=== PATIENT | female | born 1980 | race Caucasian/White ===

== ENCOUNTER 2018-05-29 20:01 | Emergency (ER) | payer OTHER ==
[2018-05-29 20:09] VITALS: BP 149/99; PULSE 99; TEMP 97.9; BMI 27.4
[2018-05-29] MEDS ORDERED: ONDANSETRON 4 MG/2 ML VIAL IVPUSH ONE (20:25)
[2018-05-29] MEDS ORDERED: SODIUM CHLORIDE 1,000 ML IV STA (20:25)
[2018-05-29] MEDS ORDERED: morphine CARPU-JECT 4 MG/1 ML DISP.SYRIN IVPUSH ONE (20:25)
--- NOTE | 2018-05-29 20:29 | PDOC ---
Attending Attestation - HPI HPI: 05/29/18 21:32 The patient is a 37 year old female with past medical history significant for hypothyroidism presents to the emergency department with abdominal pain. The patient reports the pain stated around midnight, associated with multiple episodes of NBNB emesis. The patient reports associated symptoms of nausea and chills. Denies fever, diarrhea, urinary symptoms or changes in bowel habits. Allergies: NKDA PCP: Dr. Wing Rooney - Physicial Exam PE: 05/29/18 21:33 GENERAL: The patient is in no acute distress. HEAD: Normal with no signs of trauma. EYES: PERRLA, EOMI, sclera anicteric, conjunctiva clear. ENT: Ears normal, nares patent, oropharynx clear without exudates. Moist mucous membranes. NECK: Normal range of motion, supple without lymphadenopathy, JVD, or masses. LUNGS: Breath sounds equal, clear to auscultation bilaterally. No wheezes, and no crackles. HEART:Regular rate and rhythm, normal S1 and S2 without murmur, rub or gallop. ABDOMEN:+RUQ tenderness, no involuntary guarding or rebound. Soft, no masses palpated. EXTREMITIES: Normal range of motion, no edema. No clubbing or cyanosis. No erythema, or tenderness. NEUROLOGICAL: Cranial nerves II through XII grossly intact. Normal speech. No focal neurological deficits. MUSCULOSKELETAL: Back nontender to palpation, no CVA tenderness SKIN: +petechiae to the face. Dry, normal turgor, no rashes or lesions noted. - Medical Decision Making 05/29/18 21:33 Documentation prepared by Tanisha Renner, acting as remote medical coder for Sharri Rocha MD. <Tanisha Renner - Last Filed: 05/29/18 21:32> - Resident Resident Name: Avery Javed - ED Attending Attestation I have performed the following: I have examined & evaluated the patient, The case was reviewed & discussed with the resident, I agree w/resident's findings & plan, Exceptions are as noted - Medical Decision Making 05/29/18 22:10 Laboratory Tests 05/29/18 05/29/18 05/29/18 20:40 20:40 20:40 WBC 15.3 H Hgb 13.6 Hct 39.8 Plt Count 275 Neutrophils % 83.9 H BUN 13 Creatinine 0.9 Total Bilirubin 0.2 AST 29 ALT 36 Serum , Qual Negative EKG- NSR rate of 82 bpm, axis nml, intervals nml, no st elevation or depression <Sharri Rocha - Last Filed: 05/29/18 22:11>
[2018-05-29] MEDS ORDERED: morphine SULFATE 4 MG/ML VIAL ONE (20:47)
[2018-05-29 20:49] LABS: BASO % 0.5 % (0-2.0); EOS % 0.7 % (0-4.5); HEMATOCRIT 39.8 % (32.4-45.2); HEMOGLOBIN 13.6 GM/dL (10.7-15.3); LYMPH % 12.1 % (8-40); MCH 32.1 pg (25.7-33.7); MCHC 34.2 g/dl (32.0-36.0); MEAN CELL VOLUME 93.9 fl (80-96); MEAN PLT VOLUME 9.2 fl (7.5-11.1); MONO % 2.8 % (3.8-10.2); NEUT % 83.9 % (42.8-82.8); PLATELET COUNT 275 K/MM3 (134-434); RBC 4.24 M/mm3 (3.60-5.2); RDW 13.4 % (11.6-15.6); WHITE BLOOD COUNT 15.3 K/mm3 (4.0-10.0)
[2018-05-29] MEDS ORDERED: FAMOTIDINE 20 MG/50 ML IVPB 20 MG/50 ML MG IVPB ONE ×2 (21:00→21:57)
--- NOTE | 2018-05-29 21:04 | PDOC ---
History of Present Illness - General Chief Complaint: Nausea/Vomiting Stated Complaint: VOMITING ABDOMINAL PAIN Time Seen by Provider: 05/29/18 20:16 History Source: Patient Exam Limitations: Language Barrier (phone int used) - History of Present Illness Initial Comments: 05/29/18 20:55 Patient is a 37F with history of hypothyroidism here today complaining of abdominal pain and vomiting that started at about noon today. Denies fevers, endorses chills. Denies blood in vomit. Pain is worse in epigastrium. Denies diarrhea, constipation. Denies prior surgical history. Denies vaginal pain, vaginal discharge, vaginal bleeding. LMP 05/07. No sick contacts. Endorses drinking two beers last night. Past History - Past Medical History Allergies/Adverse Reactions: Allergies Allergy/AdvReac Type Severity Reaction Status Date / Time No Known Allergies Allergy Verified 05/29/18 20:53 Home Medications: Ambulatory Orders NK [No Known Home Medication] 05/29/18 COPD: No Other medical history: HLD, Hypothyroidism - Suicide/Smoking/Psychosocial Hx Smoking History: Unknown if ever smoked Hx Alcohol Use: Yes (Social) Drug/Substance Use Hx: No Review of Systems - Review of Systems Comments:: 05/29/18 21:04 GENERAL/CONSTITUTIONAL: No fever or chills. No weakness. HEAD, EYES, EARS, NOSE AND THROAT: No change in vision. No sore throat. CARDIOVASCULAR: No chest pain or shortness of breath RESPIRATORY: No cough, wheezing, or hemoptysis. GASTROINTESTINAL: +nausea, +vomiting, no diarrhea or constipation. GENITOURINARY: No dysuria, frequency, or change in urination. MUSCULOSKELETAL: No joint or muscle swelling or pain. No neck or back pain. SKIN: No rash NEUROLOGIC: No headache, vertigo, loss of consciousness, or change in strength/ sensation. HEMATOLOGIC/LYMPHATIC: No anemia, easy bleeding, or history of blood clots. ALLERGIC/IMMUNOLOGIC: No hives or skin allergy. *Physical Exam - Vital Signs Last Vital Signs Temp Pulse Resp BP Pulse Ox 97.9 F 99 H 20 149/99 100 05/29/18 20:06 05/29/18 20:06 05/29/18 20:06 05/29/18 20:06 05/29/18 20:06 - Physical Exam Comments: 05/29/18 21:07 GENERAL: Awake, alert, and fully oriented, in no acute distress HEAD: No signs of trauma, normocephalic, atraumatic EYES: PERRLA, EOMI, sclera anicteric, conjunctiva clear ENT: Auricles normal inspection, hearing grossly normal, nares patent, oropharynx clear without exudates. Moist mucosa NECK: Normal ROM, supple, no lymphadenopathy, JVD, or masses LUNGS: No distress, speaks full sentences, clear to auscultation bilaterally HEART: Regular rate and rhythm, normal S1 and S2, no murmurs, rubs or gallops, peripheral pulses normal and equal bilaterally. ABDOMEN: Soft, +RUQ tenderness, normoactive bowel sounds. No guarding, no rebound. No masses EXTREMITIES: Normal inspection, Normal range of motion, no edema. No clubbing or cyanosis. NEUROLOGICAL: Cranial nerves II through XII grossly intact. Normal speech, normal gait, no focal sensorimotor deficits SKIN: Warm, Dry, normal turgor, no rashes or lesions noted. Moderate Sedation - Procedure Monitoring Vital Signs: Procedure Monitoring Vital Signs Temperature 97.9 F 05/29/18 20:06 Pulse Rate 99 H 05/29/18 20:06 Respiratory Rate 20 05/29/18 20:06 Blood Pressure 149/99 05/29/18 20:06 O2 Sat by Pulse Oximetry (%) 100 05/29/18 20:06 ED Treatment Course - LABORATORY CBC & Chemistry Diagram: 05/29/18 20:40 05/29/18 20:40 - ADDITIONAL ORDERS Additional order review: 05/29/18 20:40 RBC 4.24 MCV 93.9 MCHC 34.2 RDW 13.4 MPV 9.2 Neutrophils % 83.9 H Lymphocytes % 12.1 Monocytes % 2.8 L Eosinophils % 0.7 Basophils % 0.5 - RADIOLOGY Radiology Studies Ordered: Category Date Time Status ABDOMEN US -LIMITED [US] Stat Ultrasound 05/29/18 20:27 Ordered Medical Decision Making - Medical Decision Making 05/29/18 21:07 Patient is 37F with history of hypothyroidism here today with vomiting. Vitals normal and stable. RUQ tenderness on exam. DDx includes, but is not limited to: gastritis, pancreatitis, cholecystitis. Will evaluate with abdominal labs and RUQ US. 05/30/18 00:50 CBC shows leukocytosis. CMP, lipase normal. UA clear. Preg normal. US shows fatty liver, gallbladder normal. Patient continued to have pain, CT a/p ordered. 05/30/18 01:[address] Mckeon pending CT a/p. If normal, PO challenged and dc. *DC/Admit/Observation/Transfer Diagnosis at time of Disposition: Abdominal pain - Discharge Dispostion Condition at time of disposition: Fair - Referrals Referrals: ON STAFF,NOT [Non Staff, Medical] - - Patient Instructions - Post Discharge Activity
[2018-05-29 21:28] LABS: ALBUMIN 3.8 g/dl (3.4-5.0); ALK PHOS 86 U/L (45-117); ANION GAP 9 MMOL/L (8-16); BILIRUBIN,TOTAL 0.2 mg/dL (0.2-1); BLOOD UREA NITROGEN 13 mg/dL (7-18); CALCIUM 8.7 mg/dL (8.5-10.1); CHLORIDE 107 mmol/L (98-107); CO2 24 mmol/L (21-32); CREATININE 0.9 mg/dL (0.55-1.3); GLUCOSE,RANDOM 107 mg/dL (74-106); LIPASE 82 U/L (73-393); POTASSIUM 4.7 mmol/L (3.5-5.1); SGOT/AST 29 U/L (15-37); SGPT/ALT 36 U/L (13-61); SODIUM 140 mmol/L (136-145); TOT PROT 7.8 g/dl (6.4-8.2)
[2018-05-29 22:03] LABS: URINE APPEARANCE CLEAR; URINE BILIRUBIN NEGATIVE (<2.0 mg/dL); URINE COLOR YELLOW; URINE GLUCOSE (UA) NEGATIVE (NEGATIVE); URINE KETONE TRACE (NEGATIVE); URINE LEUK ESTERASE 1+ (NEGATIVE); URINE NITRITE NEGATIVE (NEGATIVE); URINE PROTEIN 1+ (NEGATIVE); URINE UROBILINOGEN NEGATIVE mg/dL (0.2-1.0)
[2018-05-29 22:13] LABS: EPI CELLS RARE /HPF (FEW); URINE BACTERIA RARE /hpf (NONE SEEN); URINE MUCUS RARE
--- NOTE | 2018-05-30 02:04 | PDOC ---
*Physical Exam - Vital Signs Last Vital Signs Temp Pulse Resp BP Pulse Ox 97.9 F 99 H 20 149/99 100 05/29/18 20:06 05/29/18 20:06 05/29/18 20:06 05/29/18 20:06 05/29/18 20:06 <Chitra Cifuentes - Last Filed: 05/30/18 02:28> - Vital Signs Last Vital Signs Temp Pulse Resp BP Pulse Ox 97.9 F 99 H 20 149/99 100 05/29/18 20:06 05/29/18 20:06 05/29/18 20:06 05/29/18 20:06 05/29/18 20:06 <Farheen Mckeon - Last Filed: 05/30/18 02:40> ED Treatment Course - LABORATORY CBC & Chemistry Diagram: 05/29/18 20:40 05/29/18 20:40 - ADDITIONAL ORDERS Additional order review: Laboratory Results 05/29/18 05/29/18 05/29/18 21:55 20:40 20:40 Sodium 140 Potassium 4.7 Chloride 107 Carbon Dioxide 24 Anion Gap 9 BUN 13 Creatinine 0.9 Creat Clearance w eGFR 70.45 Random Glucose 107 H Calcium 8.7 Total Bilirubin 0.2 AST 29 ALT 36 Alkaline Phosphatase 86 Total Protein 7.8 Albumin 3.8 Lipase 82 Serum , Qual Negative Urine Color Yellow Urine Appearance Clear Urine pH 7.0 Ur Specific Glen 1.027 Urine Protein 1+ H Urine Glucose (UA) Negative Urine Ketones Trace H Urine Blood Negative Urine Nitrite Negative Urine Bilirubin Negative Urine Urobilinogen Negative Ur Leukocyte Esterase 1+ H Urine WBC (Auto) 4 Urine RBC (Auto) 7 Ur Epithelial Cells Rare Urine Bacteria Rare Urine Mucus Rare 05/29/18 20:40 RBC 4.24 MCV 93.9 MCHC 34.2 RDW 13.4 MPV 9.2 Neutrophils % 83.9 H Lymphocytes % 12.1 Monocytes % 2.8 L Eosinophils % 0.7 Basophils % 0.5 - Medications Given in the ED: ED Medications Discontinued Medications Generic Name Dose Route Start Last Admin Trade Name Freq PRN Reason Stop Dose Admin Famotidine/Sodium Chloride 20 mg in 50 mls @ 100 mls/hr 05/29/18 21:00 21:58 Pepcid 20 Mg Premixed Ivpb - IVPB 05/29/18 21:29 100 mls/hr ONCE ONE Administration Sodium Chloride 1,000 mls @ 1,000 mls/hr 05/29/18 20:25 05/29/18 20:51 Normal Saline - IV 05/29/18 21:24 1,000 mls/hr ASDIR STA Administration Morphine Sulfate 4 mg 05/29/18 20:25 05/29/18 20:51 Morphine Injection - IVPUSH 05/29/18 20:26 4 mg ONCE ONE Administration Ondansetron HCl 4 mg 05/29/18 20:25 05/29/18 20:51 Zofran Injection IVPUSH 05/29/18 20:26 4 mg ONCE ONE Administration <CifuentesChitra - Last Filed: 05/30/18 02:28> - LABORATORY CBC & Chemistry Diagram: 05/29/18 20:40 05/29/18 20:40 - ADDITIONAL ORDERS Additional order review: Laboratory Results 05/29/18 05/29/18 05/29/18 21:55 20:40 20:40 Sodium 140 Potassium 4.7 Chloride 107 Carbon Dioxide 24 Anion Gap 9 BUN 13 Creatinine 0.9 Creat Clearance w eGFR 70.45 Random Glucose 107 H Calcium 8.7 Total Bilirubin 0.2 AST 29 ALT 36 Alkaline Phosphatase 86 Total Protein 7.8 Albumin 3.8 Lipase 82 Serum , Qual Negative Urine Color Yellow Urine Appearance Clear Urine pH 7.0 Ur Specific Glen 1.027 Urine Protein 1+ H Urine Glucose (UA) Negative Urine Ketones Trace H Urine Blood Negative Urine Nitrite Negative Urine Bilirubin Negative Urine Urobilinogen Negative Ur Leukocyte Esterase 1+ H Urine WBC (Auto) 4 Urine RBC (Auto) 7 Ur Epithelial Cells Rare Urine Bacteria Rare Urine Mucus Rare 05/29/18 20:40 RBC 4.24 MCV 93.9 MCHC 34.2 RDW 13.4 MPV 9.2 Neutrophils % 83.9 H Lymphocytes % 12.1 Monocytes % 2.8 L Eosinophils % 0.7 Basophils % 0.5 - Medications Given in the ED: ED Medications Discontinued Medications Generic Name Dose Route Start Last Admin Trade Name Freq PRN Reason Stop Dose Admin Famotidine/Sodium Chloride 20 mg in 50 mls @ 100 mls/hr 05/29/18 21:00 21:58 Pepcid 20 Mg Premixed Ivpb - IVPB 05/29/18 21:29 100 mls/hr ONCE ONE Administration Sodium Chloride 1,000 mls @ 1,000 mls/hr 05/29/18 20:25 05/29/18 20:51 Normal Saline - IV 05/29/18 21:24 1,000 mls/hr ASDIR STA Administration Morphine Sulfate 4 mg 05/29/18 20:25 05/29/18 20:51 Morphine Injection - IVPUSH 05/29/18 20:26 4 mg ONCE ONE Administration Ondansetron HCl 4 mg 05/29/18 20:25 05/29/18 20:51 Zofran Injection IVPUSH 05/29/18 20:26 4 mg ONCE ONE Administration <Farheen Mckeon - Last Filed: 05/30/18 02:40> Medical Decision Making - Medical Decision Making 05/30/18 02:28 Patient Name: FREDDIE BARRY THIS IS A PRELIMINARY REPORT FROM [facility] DATE OF SERVICE: 2018-05-30 00:24:57 IMAGES: [id number] EXAM: CT ABDOMEN \T\ PELVIS CT WITH CONTR HISTORY: Right lower quad [address] [place] [address] Phone: [email or web address] ([phone]) Fax: Email: [email or web address] Patient Information: : 1980 Order Type: Preliminary Name: WENDY FRAZIER Sex: F Study Description: CT ABDOMEN AND PELVIS Modality: CT Location: [facility] Referring Physician: MANDIE PASCUAL Gallbladder: Normal Stomach: Normal Small bowel: Normal Large bowel: Normal Appendix: Normal Adrenals:Normal Kidneys: Normal Vascular: Normal Lymphatic: Normal Peritoneal: No free peritoneal air or fluid Pelvis: Uterus: normal Rectum: Normal Bladder: Normal The inferior thorax: Normal General: Skeletal: Normal Abdominal wall: Normal IMPRESSION: No acute findings <Chitra Cifuentes - Last Filed: 05/30/18 02:28> - Medical Decision Making 05/30/18 02:02 Sign out received from Dr Javed. Freddie Barry is a 37yo woman with an PMH of hypothyroidism who presented to the ED with vomiting and RUQ tenderness. ED course notable for: - Leukocytosis on CBC, labs otherwise unremarkable - Abd US with fatty liver. No sign of gallstones or cholecystitis - CT abd/pelvis ordered. Now completed, reviewed in ED, no obvious abnormalities noted. Radiology read pending. 05/30/18 02:32 - CT without acute abnormalities - Ms Barry re-evaluated. Feeling improved. Able to drink water without vomiting. Will d/c home with PMD follow up and return precautions. Discussed with Dr Cifuentes. Farheen Mckeon PGY1 <Farheen Mckeon - Last Filed: 05/30/18 02:40> *DC/Admit/Observation/Transfer <Chitra Cifuentes - Last Filed: 05/30/18 02:28> <Farheen Mckeon - Last Filed: 05/30/18 02:40> Diagnosis at time of Disposition: Abdominal pain, Vomiting - Discharge Dispostion Condition at time of disposition: Fair - Referrals Referrals: ON STAFF,NOT [Non Staff, Medical] - - Patient Instructions Printed Discharge Instructions: DI for Vomiting -- Adult Additional Instructions: Discharge Instructions: You were seen in the emergency department for vomiting and abdominal pain. You had blood tests, an ultrasound, and a CT scan. The results were not concerning. Your vomiting and pain are most likely caused by a viral infection or stomach irriaation. Home Care: - Drink plenty of fluids. Avoid alcohol, caffeine, and dairy products - Do not worry about eating until you feel better as long as you are staying well-hydrated. When you start to eat, start with plain foods and small meals. Avoid spicy and greasy foods. Continue to avoid dairy, alcohol, and caffeine. - Continue to take all medications as previously prescribed. - You may take acetaminophen 650-1000mg every 6-8 hours as needed for pain. Avoid ibuprofen as this can irritate your stomach. Follow Up: - See your regular doctor within the next week or earlier if your symptoms continue. - Seek immediate medical care if your symptoms worsen, you are unable to eat/ drink anything, you feel dehydrated, you become lightheaded, or you see blood in your vomit. Instrucciones de descarga: Usted fue atendido en el servicio de urgencias por vmitos y dolor abdominal. Se le realizaron anlisis de kirsten, rosario ecografa y rosario tomografa computarizada. Los resultados no fueron preocupantes. David vmitos y dolor son probablemente causados ??por rosario infeccin viral o irritacin estomacal. Cuidados en el hogar: - Beber mucho lquido. Celeste el alcohol, la cafena y los productos lcteos. - No se preocupe por comer hasta que se sienta mejor, siempre y cuando se mantenga brenda hidratado. Cuando comience a comer, comience con comidas simples y pequeas. Evite los alimentos picantes y grasientos. Continuar evitando los productos lcteos, el alcohol y la cafena. - Continuar tomando todos los medicamentos milagro se prescribi anteriormente. - Puede miguel angel acetaminofn 650-1000mg cada 6-8 horas segn sea necesario para el dolor. Evite el ibuprofeno ya que esto puede irritar shook estmago. Seguir: - Consulte a shook mdico habitual dentro de la prxima semana o antes si david sntomas continan. - Busque atencin mdica inmediata si david sntomas empeoran, no puede comer ni beber nada, se siente deshidratado, se siente mareado o ve kirsten en shook vmito. Print Language: UPPER SORBIAN - Post Discharge Activity
--- NOTE | 2018-05-30 11:07 | EKG ---
Test Reason : Blood Pressure : / mmHG Vent. Rate : 082 BPM Atrial Rate : 082 BPM P-R Int : 144 ms QRS Dur : 066 ms QT Int : 390 ms P-R-T Axes : 066 015 003 degrees QTc Int : 455 ms NORMAL SINUS RHYTHM NORMAL ECG NO PREVIOUS ECGS AVAILABLE Confirmed by MD INNA, SCOTTY ([id number]) on 05/30/2018 11:07:40 AM Referred By: Confirmed By:SCOTTY KEITH MD
== END 2018-05-30 03:02 | disposition home or self-care (01) ==
LOC: SUPCPDRO 20:01 → JER 20:01
PROC: 3E033GC Introduction of Other Therapeutic Substance into Peripheral Vein, Percutaneous Approach (ICD-10-PCS; principal; 2018-05-29)
PROC: 3E033GC Introduction of Other Therapeutic Substance into Peripheral Vein, Percutaneous Approach (ICD-10-PCS; 2018-05-29)
PROC: 3E033NZ Introduction of Analgesics, Hypnotics, Sedatives into Peripheral Vein, Percutaneous Approach (ICD-10-PCS; 2018-05-29)
DX: R10.9 Unspecified abdominal pain (principal); R11.2 Nausea with vomiting, unspecified
CPT/HCPCS: 36415; 74177-TC; 76705-TC; 80053; 81003; 81015; 83690; 84703; 85025; 93005; 93010; 96365; 96375; 99283-25; J7030

== ENCOUNTER 2018-08-23 12:39 | Emergency (ER) | payer OTHER | END 2018-08-23 14:15 | disposition home or self-care (01) | LOC: JERFT 12:39 ==

== ENCOUNTER 2021-07-26 23:00 | Emergency (ER) | payer OTHER ==
[2021-07-26 23:04] VITALS: BP 137/90; PULSE 93; TEMP 98.1; BMI 29.6
[2021-07-27] MEDS ORDERED: ACETAMINOPHEN 1000 MG/100 ML BAG IVPB ONE (00:28)
[2021-07-27] MEDS ORDERED: SODIUM CHLORIDE 0.9% 500 ML INFUS.BAG IV ONE (00:28)
[2021-07-27] MEDS ORDERED: METOCLOPRAMIDE HCL INJECTION 10 MG/2 ML VIAL IVPUSH ONE (00:28)
[2021-07-27] MEDS ORDERED: ACETAMINOPHEN INJECTION 100 ML IVPB ONE (01:01)
[2021-07-27] MEDS ORDERED: METOCLOPRAMIDE HCL INJECTION 10 MG/2 ML VIAL ONE (01:01)
[2021-07-27 01:10] LABS: BASO % 0.6 % (0-2.0); EOS % 1.7 % (0-4.5); HEMATOCRIT 36.8 % (32.4-45.2); HEMOGLOBIN 12.3 GM/dL (10.7-15.3); LYMPH % 22.8 % (8-40); MCH 30.8 pg (25.7-33.7); MCHC 33.5 g/dl (32.0-36.0); MEAN PLT VOLUME 8.9 fl (7.5-11.1); MONO % 4.9 % (3.8-10.2); PH,URINE 5.5 (5.0-8.0); PLATELET COUNT 259 10^3/uL (134-434); RDW 12.7 % (11.6-15.6); URINE APPEARANCE CLEAR; URINE BILIRUBIN NEGATIVE (NEGATIVE); URINE COLOR YELLOW; URINE GLUCOSE (UA) NEGATIVE (NEGATIVE); URINE KETONE NEGATIVE (NEGATIVE); URINE LEUK ESTERASE NEGATIVE (NEGATIVE); URINE NITRITE NEGATIVE (NEGATIVE); URINE PROTEIN NEGATIVE (NEGATIVE); URINE UROBILINOGEN 0.2 mg/dL (0.2-1.0); WHITE BLOOD COUNT 14.1 K/mm3 (4.0-10.0)
[2021-07-27 01:30] LABS: ALBUMIN 3.6 g/dl (3.4-5.0); BLOOD UREA NITROGEN 7.3 mg/dL (7-18); CALCIUM 8.9 mg/dL (8.5-10.1)
[2021-07-27 01:34] LABS: CREATININE 0.6 mg/dL (0.55-1.3)
[2021-07-27 01:35] LABS: BILIRUBIN,TOTAL 0.4 mg/dL (0.2-1); TOT PROT 7.1 g/dl (6.4-8.2)
== END 2021-07-27 03:19 | disposition home or self-care (01) ==
LOC: JER 23:00
PROC: 3E033GC Introduction of Other Therapeutic Substance into Peripheral Vein, Percutaneous Approach (ICD-10-PCS; principal; 2021-07-26)
DX: O26.891 Other specified pregnancy related conditions, first trimester (principal); R10.84 Generalized abdominal pain; R51.9 Headache, unspecified; Z3A.10 10 weeks gestation of pregnancy
CPT/HCPCS: 36415; 76817-TC; 80053; 81003; 84702; 85025; 86850; 86900; 86901; 87086; 99284-25

== ENCOUNTER 2021-08-11 10:47 | Emergency (ER) | payer OTHER ==
[2021-08-11 10:54] VITALS: BMI 29.6
[2021-08-11] MEDS ORDERED: SODIUM CHLORIDE 1,000 ML IV STA (12:05)
[2021-08-11] MEDS ORDERED: ACETAMINOPHEN 1000 MG/100 ML BAG IVPB ONE (12:05)
[2021-08-11 13:05] LABS: BASO % 0.4 % (0-2.0); EOS % 0.9 % (0-4.5); HCG,QUALITATIVE URINE Positive; HEMATOCRIT 36.7 % (32.4-45.2); HEMOGLOBIN 12.6 GM/dL (10.7-15.3); LYMPH % 22.3 % (8-40); MCH 31.9 pg (25.7-33.7); MCHC 34.3 g/dl (32.0-36.0); MEAN PLT VOLUME 9.4 fl (7.5-11.1); MONO % 3.8 % (3.8-10.2); NEUT % 72.6 % (42.8-82.8); PLATELET COUNT 255 10^3/uL (134-434); RBC 3.94 M/mm3 (3.60-5.2); RDW 13.4 % (11.6-15.6); WHITE BLOOD COUNT 10.8 K/mm3 (4.0-10.0)
[2021-08-11 13:09] LABS: EPI CELLS >36 /uL (0-25.1); HYALINE CASTS 3 /uL (0-3.1); PH,URINE 5.5 (5.0-8.0); URINE APPEARANCE CLOUDY; URINE BACTERIA 146 /uL (0-1359); URINE BILIRUBIN NEGATIVE (NEGATIVE); URINE COLOR YELLOW; URINE GLUCOSE (UA) NEGATIVE (NEGATIVE); URINE KETONE TRACE (NEGATIVE); URINE LEUK ESTERASE NEGATIVE (NEGATIVE); URINE NITRITE NEGATIVE (NEGATIVE); URINE PROTEIN NEGATIVE (NEGATIVE); URINE RBC 5 /uL (0-23.9); URINE UROBILINOGEN 0.2 mg/dL (0.2-1.0); URINE WBC 6 /uL (0-25.8)
[2021-08-11 13:16] LABS: CHLORIDE 100 mmol/L (98-107); SODIUM 131 mmol/L (136-145)
[2021-08-11 13:18] LABS: CALCIUM 8.7 mg/dL (8.5-10.1)
[2021-08-11 13:19] LABS: ALBUMIN 3.3 g/dl (3.4-5.0); BLOOD UREA NITROGEN 7.5 mg/dL (7-18); CO2 26 mmol/L (21-32); GLUCOSE,RANDOM 149 mg/dL (74-106); LIPASE 61 U/L (73-393)
[2021-08-11 13:21] LABS: CREATININE 0.7 mg/dL (0.55-1.3)
[2021-08-11 13:22] LABS: SGOT/AST 84 U/L (15-37)
[2021-08-11 13:23] LABS: BILIRUBIN,TOTAL 0.4 mg/dL (0.2-1); TOT PROT 7.6 g/dl (6.4-8.2)
[2021-08-11 13:24] LABS: ALK PHOS 87 U/L (45-117)
[2021-08-11 13:47] LABS: ANION GAP 5 MMOL/L (8-16); SGPT/ALT 30 U/L (13-61)
[2021-08-11 14:03] VITALS: BP 104/70; PULSE 89; TEMP 98
[2021-08-11 14:35] LABS: ALBUMIN 3.1 g/dl (3.4-5.0); BLOOD UREA NITROGEN 7.2 mg/dL (7-18); CALCIUM 8.7 mg/dL (8.5-10.1)
[2021-08-11 14:38] LABS: CREATININE 0.7 mg/dL (0.55-1.3)
[2021-08-11 14:40] LABS: BILIRUBIN,TOTAL 0.3 mg/dL (0.2-1); TOT PROT 6.4 g/dl (6.4-8.2)
== END 2021-08-11 14:56 | disposition home or self-care (01) ==
LOC: JER 10:47
PROC: 3E0333Z Introduction of Anti-inflammatory into Peripheral Vein, Percutaneous Approach (ICD-10-PCS; principal; 2021-08-11)
DX: O26.851 Spotting complicating pregnancy, first trimester (principal); Z3A.12 12 weeks gestation of pregnancy
CPT/HCPCS: 36415; 76801-TC; 80053; 81003; 83690; 84702; 84703; 85025; 87086; 96374; 99284-25

== ENCOUNTER 2022-02-10 19:30 | Inpatient (IN) | payer OTHER ==
[2022-02-10 21:53] LABS: BASO % 0.4 % (0-2.0); EOS % 0.2 % (0-4.5); HEMATOCRIT 38.5 % (32.4-45.2); HEMOGLOBIN 12.5 GM/dL (10.7-15.3); LYMPH % 17.8 % (8-40); MCH 30.1 pg (25.7-33.7); MCHC 32.5 g/dl (32.0-36.0); MEAN CELL VOLUME 92.4 fl (80-96); MEAN PLT VOLUME 12.3 fl (7.5-11.1); MONO % 3.8 % (3.8-10.2); NEUT % 77.8 % (42.8-82.8); PLATELET COUNT 150 10^3/uL (134-434); RBC 4.17 M/mm3 (3.60-5.2)
[2022-02-10 21:59] LABS: INR 0.94 (0.83-1.09); PROTHROMBIN TIME (PATIENT) 10.8 SEC (9.7-13.0)
[2022-02-10] MEDS ORDERED: ACETAMINOPHEN 325 MG TABLET (FP) PO PRN (22:05)
[2022-02-10] MEDS ORDERED: BISACODYL 10 MG SUPP.RECT RC PRN (22:05)
[2022-02-10] MEDS ORDERED: BENZOCAINE 20% 57 GM BOTTLE TP PRN (22:05)
[2022-02-10] MEDS ORDERED: BENZOCAINE 28 GM HEMORRHOIDAL OINTMENT TP PRN (22:05)
[2022-02-10] MEDS ORDERED: WITCH HAZEL 50% (TUCKS) 40 PAD/JAR PAD TP PRN (22:05)
[2022-02-10 22:14] LABS: CALCIUM 8.4 mg/dL (8.5-10.1)
[2022-02-10 22:15] LABS: BLOOD UREA NITROGEN 12.3 mg/dL (7-18)
[2022-02-10] MEDS ORDERED: OXYTOCIN 20 UNITS in 0.9% NS 20 UNIT/1,000 ML INFUS.BAG IV SCH (22:15)
[2022-02-10 22:18] LABS: CREATININE 0.8 mg/dL (0.55-1.3)
[2022-02-10 22:36] VITALS: BMI 30.9
[2022-02-11] MEDS: IBUPROFEN 600 MG TABLET (FP) PO PRN ×3 (00:20→15:26)
[2022-02-11] MEDS: LEVOTHYROXINE NA 100 MCG TABLET (FP) PO SCH (06:44)
[2022-02-11 07:55] LABS: BASO % 0.6 % (0-2.0); EOS % 0.5 % (0-4.5); HEMATOCRIT 38.3 % (32.4-45.2); HEMOGLOBIN 12.7 GM/dL (10.7-15.3); LYMPH % 25.8 % (8-40); MCH 30.4 pg (25.7-33.7); MCHC 33.2 g/dl (32.0-36.0); MEAN CELL VOLUME 91.6 fl (80-96); MEAN PLT VOLUME 11.4 fl (7.5-11.1); MONO % 6.4 % (3.8-10.2); NEUT % 66.7 % (42.8-82.8); PLATELET COUNT 157 10^3/uL (134-434); RBC 4.18 M/mm3 (3.60-5.2); RDW 14.2 % (11.6-15.6); WHITE BLOOD COUNT 12.8 K/mm3 (4.0-10.0)
[2022-02-11] MEDS: FERROUS SO4 325 MG TABLET (FP) PO SCH ×3 (08:55→18:15)
[2022-02-11] MEDS: PRENATAL VITAMINS W/ FOLIC ACID TABLET (FP) PO SCH (10:34)
[2022-02-12] MEDS: LEVOTHYROXINE NA 100 MCG TABLET (FP) PO SCH (06:13)
[2022-02-12] MEDS: IBUPROFEN 600 MG TABLET (FP) PO PRN (06:14)
[2022-02-12] MEDS: FERROUS SO4 325 MG TABLET (FP) PO SCH ×2 (07:47→12:11)
[2022-02-12 09:03] VITALS: RESP 20; TEMP 98.9
[2022-02-12] MEDS: PRENATAL VITAMINS W/ FOLIC ACID TABLET (FP) PO SCH (09:22)
[2022-02-12 11:18] VITALS: BP 132/89; PULSE 67
== END 2022-02-12 13:30 | disposition home or self-care (01) | DRG 560 ==
LOC: JLDR 19:30 → J3W 23:32
PROVIDERS: ADMIT Obstetrics & Gynecology Maternal & Fetal Medicine; ATTEND Obstetrics & Gynecology Maternal & Fetal Medicine
PROC: 10E0XZZ Delivery of Products of Conception, External Approach (ICD-10-PCS; principal; 2022-02-10)
DX: O62.3 Precipitate labor (principal); O10.92 Unspecified pre-existing hypertension complicating childbirth; O24.424 Gestational diabetes mellitus in childbirth, insulin controlled; O77.0 Labor and delivery complicated by meconium in amniotic fluid; O70.0 First degree perineal laceration during delivery; Z3A.39 39 weeks gestation of pregnancy; Z37.0 Single live birth
CPT/HCPCS: 36415; 59409; 80048; 82962; 85025; 85610; 85730; 86780; 86850; 86900; 86901; 87340; C9803-CS; U0003; U0005

== ENCOUNTER 2022-12-12 19:37 | Emergency (ER) | payer OTHER ==
[2022-12-12 19:49] VITALS: BP 135/96; PULSE 82; RESP 20; TEMP 98.1; BMI 31.4
[2022-12-12] MEDS ORDERED: KETOROLAC TROMETHAMINE 30 MG/1 ML VIAL IM ONE (20:17)
[2022-12-12] MEDS ORDERED: LIDOCAINE 5% TOPICAL PATCH TP ONE (20:17)
[2022-12-12] MEDS ORDERED: ACETAMINOPHEN 500 MG TABLET (FP) PO ONE (20:17)
[2022-12-12] MEDS ORDERED: KETOROLAC TROMETHAMINE 30 MG/1 ML VIAL ONE (20:25)
[2022-12-12] MEDS ORDERED: ACETAMINOPHEN 500 MG TABLET (FP) ONE (20:25)
[2022-12-12] MEDS ORDERED: LIDOCAINE 5% TOPICAL PATCH ONE (20:25)
[2022-12-12] MEDS ORDERED: METHOCARBAMOL 750 MG TABLET PO ONE (21:19)
[2022-12-12] MEDS ORDERED: METHOCARBAMOL 500 MG TABLET ONE (21:23)
[2022-12-12] MEDS ORDERED: LIDOCAINE PATCH REMOVAL MC SCH (22:00)
[2022-12-12] MEDS ORDERED: diazePAM 5 MG TABLET PO ONE (22:20)
[2022-12-12] MEDS ORDERED: diazePAM 5 MG TABLET ONE (22:24)
== END 2022-12-12 22:55 | disposition home or self-care (01) ==
LOC: JERFT 19:37
PROC: 3E0233Z Introduction of Anti-inflammatory into Muscle, Percutaneous Approach (ICD-10-PCS; principal; 2022-12-12)
DX: M54.42 Lumbago with sciatica, left side (principal)
CPT/HCPCS: 99281-25